=== PATIENT | male | born 1940 | race Caucasian/White ===

== ENCOUNTER 2019-11-10 08:36 | Inpatient (IN) | payer OTHER ==
[~2019-11-10] VITALS: Ht 182.9 cm; Wt 81.6 kg
--- NOTE | 2019-11-10 08:36 | NUR ---
Patient BIBA ALS, transferred to bed 9. RN evaluating patient at bedside.
--- NOTE | 2019-11-10 08:39 | NUR ---
Dr. Mcdaniels is evaluating the patient at bedside.
--- NOTE | 2019-11-10 08:40 | NUR ---
PT BIBA TO ED FRO EVALUATION OF SOB. PER EMS; SOB STARTED THIS MORNIG, BREATHING TREATMENT GIVEN, O2 STA AT HIGH 80'S ON SCENE. PALCED PT ON O2 4L/M VIA NC, O2 SAT 97%. PT AAO X 1 TRO SELF, GCE 14, ABLE TO ANSWER QUESTION BY MUMBLING WORDS. PUPILS PERRRLA 3/3 MM. PT BED BOUND. RESPIRATIONS EVEN AND UNLABORED, BL LUNG RHONCHI. TACHYPNIC RR20'S, O2 SAT ROOM AIR 87-89%, PLACED ON O2 SAT 4 L/M VIA NC. O2 SAT WNL. C/O PRODUCTIVE COUGH. SKIN WARM/PINK/DRY, PULSES STRONG. GENERALIZED BRUISES NOTED. SKIN FRAGILE. ABDOMEN SOFT, NON DISTENDED, ACTIVE BOWEL SOUND X4. SQL DEVELOPER DBA ST HR 100'S, BP WNL. AT BEDSIDE EVALUATING PT. WILL CONTINUE TO MONITOR
[2019-11-10 08:42] VITALS: BP 104/50
--- NOTE | 2019-11-10 08:52 | NUR ---
technical publications writer at bedside.
[2019-11-10 09:16] LABS: BASOPHILS % (AUTO) 0.1 % (0.0-2.0); HEMOGLOBIN 10.1 g/dL (12.0-18.0); LYMPHOCYTES % (AUTO) 5.7 % (20.5-51.1); MEAN CORPUSCULAR HEMOGLOBIN 25 pg (27-31); MEAN CORPUSCULAR HGB CONC 31 g/dL (33-37); MEAN CORPUSCULAR VOLUME 80.7 fL (80-94); MONOCYTES # (AUTO) 0.7 K/uL (0.8-1.0); MONOCYTES % (AUTO) 4.1 % (1.7-9.3); NEUTROPHILS % (AUTO) 90.1 % (42.2-75.2); PLATELET COUNT (AUTO) 378 K/uL (140-450); RED BLOOD CELL COUNT(AUTO) 4.09 MIL/uL (4.20-6.10); RED CELL DISTRIBUTION WIDTH 19.4 % (11.6-13.7)
[2019-11-10 09:31] LABS: WHITE BLOOD COUNT (AUTO) 16.6 K/uL (4.8-10.8)
[2019-11-10 09:42] LABS: PROTHROMBIN TIME 12.4 secs (10.8-13.4)
[2019-11-10 09:46] LABS: ALBUMIN 1.9 g/dL (3.4-5.0); ANION GAP 9.5 (8-16); ASPARTATE AMINOTRANSFERASE 16 U/L (15-37); CARBON DIOXIDE 33.9 mmol/L (21-32); CHLORIDE 114 mmol/L (98-107); GLUCOSE 155 mg/dL (74-106); SODIUM SERUM 155 mmol/L (136-145); TOTAL BILIRUBIN 0.6 mg/dL (0.0-1.0); UREA NITROGEN, BLOOD 18 mg/dL (7-18)
[2019-11-10 09:48] LABS: POTASSIUM 2.4 mmol/L (3.5-5.1)
[2019-11-10] MEDS ORDERED: BISA-213 RC (09:52)
[2019-11-10] MEDS ORDERED: TAMS0.4C96 PO (09:52)
[2019-11-10] MEDS ORDERED: FURO-572 PO (09:52)
[2019-11-10] MEDS ORDERED: MAGN400S60 PO (09:52)
[2019-11-10] MEDS ORDERED: ATOR40TA PO (09:52)
[2019-11-10] MEDS ORDERED: FINA5TAB1 PO (09:52)
[2019-11-10] MEDS ORDERED: MULT-1640 PO (09:52)
[2019-11-10] MEDS ORDERED: ACET-2619 PO (09:52)
[2019-11-10] MEDS ORDERED: APIX5TAB PO (09:52)
[2019-11-10] MEDS ORDERED: ASCO500T45 PO (09:52)
[2019-11-10] MEDS ORDERED: ACET-1194 PO (09:52)
[2019-11-10] MEDS ORDERED: METO25TE2 PO (09:52)
[2019-11-10] MEDS ORDERED: BALS30OI TP (09:52)
[2019-11-10] MEDS ORDERED: NA P133E RC (09:53)
[2019-11-10] MEDS ORDERED: FUROSEMIDE 40 MG/4 ML VIAL IVP ONE (10:00)
[2019-11-10] MEDS ORDERED: POTASSIUM CHL 40 MEQ/ D5-1/2NS 1,000 ML IV ONE (10:00)
[2019-11-10] MEDS ORDERED: [UNRECOGNIZED DRUG - OTHER] IV ONE (10:12)
[2019-11-10] MEDS ORDERED: POTASSIUM CHLORIDE IV ONE (10:12)
[2019-11-10] MEDS ORDERED: DEXTROSE IV ONE (10:12)
--- NOTE | 2019-11-10 10:32 | NUR ---
TURN AND REPOSITION PT, OPEN WOUND TO COCCYX NOTED. PICTURE TAKEN
[2019-11-10] MEDS ORDERED: NACL 0.9% 1,000 ML IV SCH ×2 (11:44→15:45)
[2019-11-10 11:45] LABS: APPEARANCE,URINE CLOUDY (CLEAR); BILIRUBIN,URINE NEGATIVE (NEGATIVE); BLOOD, URINE TRACE-I (NEGATIVE); COLOR,URINE YELLOW (YELLOW); LEUKOCYTE ESTERASE ,URINE 3+ (NEGATIVE); NITRITE, URINE POSITIVE (NEGATIVE); PH,URINE 5.5 (5.0-9.0); UGLUCOSE NEGATIVE (NEGATIVE)
[2019-11-10] MEDS ORDERED: HYDROcodone/APAP 5/325 MG 1 TAB TAB PO PRN (11:45)
[2019-11-10] MEDS ORDERED: ONDANSETRON 4 MG/2 ML VIAL IM/IVP PRN (11:45)
[2019-11-10] MEDS ORDERED: MORPHINE SULFATE 2 MG/ML SYR IVP PRN (11:45)
[2019-11-10] MEDS ORDERED: DOCUSATE SODIUM 100 MG GELCAP PO PRN (11:45)
[2019-11-10] MEDS ORDERED: ACETAMINOPHEN 325 MG TAB PO PRN (11:45)
[2019-11-10 11:48] LABS: WBC,URINE TOO MANY TO COUNT /HPF (0-5)
[2019-11-10] MEDS ORDERED: NACL 0.45% 1,000 ML IV ONE (12:10)
[2019-11-10 12:30] VITALS: BP 115/56
--- NOTE | 2019-11-10 12:30 | NUR ---
RECEIVED PT FROM ER NURSE, IV LINE INTACT ON THE LEFT HAND G. 20, COLINDRES CATHETER IN PLACE, ON O2 2L NC, SACRAL OPEN WOUND REINFORCED WITH DRESSING AND BILATERAL ARMS SCABS AND MULTIPLE SKIN TEARS NOTED, REINFORCED. NO SIGN OF DISTRESS NOTED. WILL CONTINUE TO MONITOR PT.
--- NOTE | 2019-11-10 12:30 | NUR ---
RECEIVED PT FROM ER. WAS GIVEN REPORT BY DREW STARR. PT IS AAOX1. PT HAS VARIOUS BRUISES ON HIS ARMS, A WOUND ON HIS SACRUM REINFORCED WITH COMPOSITE DRESSING, LEFT HEEL DRESSING IN PLACE. IV IN LEFT HAND IS PATENT, DRESSING IS CLEAN AND INTACT. PT IS ON 2L O2 NC. COLINDRES CATHETER IN PLACE. TELE MONITOR ATTACHED. BED IN LOW POSITION, CALL LIGHT IN REACH. WILL CONTINUE TO MONITOR PT.
[2019-11-10 12:31] LABS: MAGNESIUM 1.7 mg/dL (1.8-2.4); PHOSPHORUS 3.5 mg/dL (2.5-4.9); THYROID STIMULATING HORMONE 1.71 uIU/mL (0.34-3.74)
--- NOTE | 2019-11-10 12:33 | NUR ---
Patient will be admitted to care of . Admited to TELE. Will go to room 122A. Belongings list completed. Report to MARLON RUSSELL.
[2019-11-10] MEDS ORDERED: MAGNESIUM HYDROXIDE 2400 MG/30 ML UDC PO PRN (12:45)
[2019-11-10] MEDS ORDERED: BISACODYL 10 MG SUPP RC PRN (12:45)
[2019-11-10] MEDS ORDERED: SODIUM PHOSPHATE 118 ML ENEM RC PRN (12:45)
--- NOTE | 2019-11-10 13:18 | NUR ---
IVF OF 1/2 NS AT 7O0ML/HR WAS STARTED TO PT NOW.
--- NOTE | 2019-11-10 14:00 | NUR ---
ECHO IS BEING DONE TO PT NOW.
[2019-11-10] MEDS ORDERED: MAG SULF 2000 MG/WATER PREMIX 50 ML IV SCH ×2 (14:30→19:00)
--- NOTE | 2019-11-10 14:30 | NUR ---
ECHO WAS FINISHED NOW.
--- NOTE | 2019-11-10 14:50 | NUR ---
SWALLOW EVALUATION WAS DONE TO PT, RECOMMENDATION IS TO PLACE PT ON NPO DUE TO RISK OF ASPIRATION, DR. GOODRICH WAS INFORMED OF THE OUTCOME OF THE SWALLOW EVALUATION.
[2019-11-10] MEDS ORDERED: POTASSIUM CHLORIDE 40 MEQ, LIDOCAINE MPF 1% 25 MG in NACL 0.9% 250 ML IV SCH (15:00)
--- NOTE | 2019-11-10 15:32 | NUR ---
MAGNESIUM IV WAS STARTED TO PT NOW FOR THE MG LEVEL OF 1.7. WILL MONITOR PT.
--- NOTE | 2019-11-10 15:38 | NUR ---
*S.T. BEDSIDE SWALLOW EVAL COMPLETED* See report for details. Pt presents w/ severe oropharyngeal dysphagia c/b consistent delayed pharyngeal swallow initiation and coughing after swallows across all textures. Pt is at high risk for aspiration. Recommend: 1) Strict NPO; alternate non-oral mode of nutrition, hydration and meds. DC P.O. diet. 2) Reassess in 3 days 11/13/2019. D/w pt results/recommendations. Endorsed to DREW Baca. Time [id number]
[2019-11-10] MEDS ORDERED: NACL 0.45% 1,000 ML IV SCH (15:50)
[2019-11-10] MEDS ORDERED: Z-GUARD PASTE TP PRN (17:05)
[2019-11-10] MEDS ORDERED: HYDRAGUARD CREAM TP PRN (17:05)
[2019-11-10] MEDS ORDERED: DEXTROSE 50% 50 ML SYR IVP PRN (17:10)
--- NOTE | 2019-11-10 17:58 | NUR ---
POTASSIUM RIDER WAS STARTED TO PT NOW FOR THE K LEVEL OF 2.4, WILL MONITOR PT
[2019-11-10] MEDS: DEXT 5% / NACL 0.45% 1,000 ML IV SCH (18:06)
[2019-11-10] MEDS ORDERED: ASPIRIN 325 MG TAB PO SCH (18:40)
[2019-11-10] MEDS: ALBUTEROL SULFATE/IPRATROPIU 3 ML SOL IH SCH (18:53)
--- NOTE | 2019-11-10 19:23 | NUR ---
RECIEVED PT AAOX1 , W/ HX OF CVA , DEMENTIA . IV SITE INTACT AND PATENT . ON SAFETY / FALL PRECAUTION PROTOCOL - FALL RISK - BED ALARM ON . POC DISCUSSED BUT POOR UNDERSTANDING DUE TO MENTAL STATUS - CALL LIGHT WITHIN REACH. . LOW CEDRICK SCALE - ON PRESSURE ULCERS PRECAUTION PROTOCOL. NPO EXCEPTS MEDS - W/ HX OF CHRONIC DYSPHAGIA - RESULT OF ST EVAL - REMARKABLE - ON SAP . ON FC DRAINING CLEAR YELLOW U.O .ON O2 AT 8LPM/ MASK - ON O2 SAT MONITORING -O2 SAT WNL , ON CARDIAC MONITORING . WILL CONT. TO MONITOR.
--- NOTE | 2019-11-10 19:23 | NUR ---
ENDORSED PT TO ENDBAND CUTTER HAND, ISRAEL FOR CONTINUITY OF CARE.
[2019-11-10 20:00] VITALS: BP 130/62
[2019-11-10 20:10] LABS: ANION GAP 8.5 (8-16); CARBON DIOXIDE 34.9 mmol/L (21-32); CHLORIDE 113 mmol/L (98-107); CREATININE 1.1 mg/dL (0.7-1.3); GLUCOSE 225 mg/dL (74-106); SODIUM SERUM 154 mmol/L (136-145); UREA NITROGEN, BLOOD 20 mg/dL (7-18)
[2019-11-10 20:13] LABS: POTASSIUM 2.4 mmol/L (3.5-5.1)
[2019-11-10] MEDS: BLOOD GLUCOSE MONITORING 1 DEV DEV FS SCH (20:59)
[2019-11-10] MEDS ORDERED: APIXABAN 2.5 MG TAB PO SCH (21:00)
[2019-11-10] MEDS ORDERED: LOVENOX 1MG/KG Q12H SUBQ SCH (21:00)
[2019-11-10] MEDS: ATORVASTATIN 20 MG TAB PO SCH (21:00)
[2019-11-10] MEDS: METOPROLOL 25 MG TAB PO SCH (21:00)
[2019-11-10] MEDS: ENOXAPARIN 80 MG/0.8 ML SYR SUBQ SCH (21:01)
[2019-11-10] MEDS: INSULIN LISPRO SLIDING SCALE 100 UNITS/ML VIAL SUBQ PRN (21:41)
--- NOTE | 2019-11-10 22:23 | NUR ---
INFORMED DR ANDERS THE DUE ORAL MEDS NOT TOLERATED BY PT.
[2019-11-11] VITALS: BP 121/62
--- NOTE | 2019-11-11 | NUR ---
MADE ROUNDS . NO SIGNS OF ACUTE DISTRESS NOTED AT THIS TIME - O2 SAT - WNL . AWAKEABLE - WILL CONT. TO MONITOR.
--- NOTE | 2019-11-11 02:00 | NUR ---
MADE ROUNDS . SLEEPING BUT AWAKEABLE BY NAME . O2 SAT WNL . WILL CONT. TO MONITOR.
[2019-11-11] MEDS: DEXT 5% / NACL 0.45% 1,000 ML IV SCH ×2 (03:28→10:16)
[2019-11-11 04:00] VITALS: BP 111/60
--- NOTE | 2019-11-11 04:00 | NUR ---
MADE ROUNDS . SLEEPING AWAKEABLE BY NAME , O2 SAT -WNL , WILL CONT. TO MONITOR. GOOD U.O /FC
--- NOTE | 2019-11-11 06:00 | NUR ---
MADE ROUNDS . AWAKE , MUMBLING . OFF LOAD PRESSURE AREAS ORDERED - OPTI FOAM STILL INTACT - NOT CHANGED. NO NO BM.WILL CONT. TO MONITOR.
[2019-11-11 06:07] LABS: T4 (THYROXINE) 7.8 ug/dL (4.5-12.0)
[2019-11-11] MEDS: BLOOD GLUCOSE MONITORING 1 DEV DEV FS SCH ×4 (06:07→20:06)
[2019-11-11] MEDS: ALBUTEROL SULFATE/IPRATROPIU 3 ML SOL IH SCH ×3 (07:26→19:29)
--- NOTE | 2019-11-11 07:28 | NUR ---
ENDORSED TO AM SHIFT FOR CONT. OF CARE W/STABLE CONDITION.
--- NOTE | 2019-11-11 07:33 | NUR ---
RECEIVED PT FROM AUDITING CLERK NURSE, ISRAEL, PT IS AWAKE AND LYING ON THE BED WITH SIDE RAILS UP AND CALL LIGHT WITHIN REACH, PT HAS A VENTURI MASK ON AT 30%, IV LINE ON THE LEFT HAND G. 20 WITH D2 1/2 NS AT 90ML/ HR, PT HAS A SACRAL WOUND IN PLACE REINFORCED WITH DRESSING, PT IS BEING MONITORED FOR THE O2 SATURATION AND SATURATION IS AT 95%, NO SIGN OF DISTRESS NOTED AND WILL CONTINUE TO MONITOR PT.
[2019-11-11 08:00] VITALS: BP 117/64
--- NOTE | 2019-11-11 08:47 | NUR ---
PATIENT HAS BEEN SCREENED AND CATEGORIZED HIGH NUTRITION RISK. PATIENT WILL BE SEEN WITHIN 1-2 DAYS OF ADMISSION. 11/11/2019-11/12/[address]
[2019-11-11] MEDS: FINASTERIDE 5 MG TAB PO SCH (08:50)
[2019-11-11] MEDS: METOPROLOL 25 MG TAB PO SCH ×2 (08:56→20:11)
[2019-11-11] MEDS: TAMSULOSIN 0.4 MG CAP PO SCH (08:58)
[2019-11-11] MEDS: MULTIVITAMIN/MINERALS 1 TAB PO SCH (08:58)
[2019-11-11] MEDS: ASCORBIC ACID 500 MG TAB PO SCH (08:58)
[2019-11-11] MEDS ORDERED: NON-FORMULARY ITEM (Multivitamin-Min/Iron/FA/Vit K (Multi-Day Plus Minerals Tablet) 1 TAB) PO SCH (09:00)
[2019-11-11] MEDS: ENOXAPARIN 80 MG/0.8 ML SYR SUBQ SCH ×2 (09:00→09:02)
[2019-11-11] MEDS ORDERED: BALSAM PERU TP SCH (09:00)
[2019-11-11] MEDS ORDERED: ECOTRIN 81 MG TABEC PO SCH (09:00)
[2019-11-11] MEDS ORDERED: CASTOR OIL TP SCH (09:00)
[2019-11-11] MEDS: ASPIRIN 81 MG TAB.CHEW PO SCH (09:03)
--- NOTE | 2019-11-11 09:05 | NUR ---
ADMINISTERED MORNING MEDICATIONS ORDERED. MEDICATIONS WERE CRUSHED AND GIVEN WITH APPLESAUCE. PT WAS COMPLIANT AND SWALLOWED MEDICATIONS. EDUCATION ABOUT MEDICATIONS WAS GIVEN TO PT. HELD METOPROLOL DUE TO RECHECK OF BP AND RESULT OF 113/41. PT REFUSED LOVENOX, EDUCATION GIVEN TO PT ON IMPORTANCE OF LOVENOX ADMINISTRATION BUT PT STILL REFUSED. INFORMED. WILL CONTINUE TO MONITOR PT.
[2019-11-11] MEDS ORDERED: hePARIN / DEXT 5% PREMIX 250 ML IV SCH ×2 (09:50→12:08)
[2019-11-11] MEDS ORDERED: HEPARIN PER PHARMACY MC PRN (09:50)
--- NOTE | 2019-11-11 09:55 | NUR ---
DC PLANNIN YRS OLD MALE PATIENT WAS ADMITTED FROM [facility] WITH A DX OF SOB , HEART FAILURE. PT HAS A HX OF DEMENTIA, CHF, HTN, DYSPHAGIA, AND CVA. PT IS WHEELCHAIR BOUND IS HIS BASELINE. ADMINISTERED IVF ,ROCEPHIN IV FOR UTI ,BLOOD AND URINE CULTURE PENDING , INITIATE RT PROTOCOL, CARDIOLOGY CONSULT SEEN BY DR SERRANO RECOMMENDED ECHO FOR LVEF/RWMA , CONTINUED HOME MEDS . DC PLAN TO GO BACK TO [facility] WHEN STABLE. Addendum: 11/13/19 at 1137 by Jaylin Baxter CM DC PLANNING: SEEN BY DIGITAL OPERATIONS ANALYST DR HERNANDEZ REVIEWED ECHO NORMAL LVEF,RECOMMENDED TO CONTINUE TREATMENT OF UNDERLYING METABOLIC/ INFECTIOUS PROCESSES. DR KM MANNING MD TO CONTINUE MEROPENEM THERAPY, SUPERVISOR AGRICULTURAL EDUCATION CONSULT WITH DR HARINI GUZMAN FOR HYPERNATREMIA NA 160 . K+2.8 K-RIDER IV ORDERED TO BE GIVEN. CM TO FOLLOW Addendum: 11/15/19 at 1516 by Jaylin Baxter CM DC PLANNING PT HAS A DC ORDER TO GO BACK TO [facility] . PT CAN GO TO ROOM 514 B . ARRANGED TRANSPORT WITH [facility] INTENSIVE PHYSICIAN TIME 1800 PER SARAH (STUCCO APPLICATOR [facility]) Addendum: 11/16/19 at 1446 by Jaylin Baxter CM DC PLANNING: PT HAS ISO BED AT [facility] GOING ROOM 100B ,ARRANGED TRANSPORT WITH [facility]IATR[facility] INTENSIVE PHYSICIAN TIME 5PM NOTIFED LAURITA RUSSELL
[2019-11-11 10:44] LABS: BASOPHILS # (AUTO) 0.1 K/uL (0.00-0.22); BASOPHILS % (AUTO) 0.6 % (0.0-2.0); EOSINOPHILS # (AUTO) 0.1 K/uL (0-0.4); EOSINOPHILS % (AUTO) 0.5 % (0.0-4.0); HEMATOCRIT 30.5 % (36-52); HEMOGLOBIN 9.5 g/dL (12.0-18.0); LYMPHOCYTES # (AUTO) 1.2 K/uL (2.0-11.5); LYMPHOCYTES % (AUTO) 12.3 % (20.5-51.1); MEAN CORPUSCULAR HEMOGLOBIN 25 pg (27-31); MEAN CORPUSCULAR HGB CONC 31 g/dL (33-37); MEAN CORPUSCULAR VOLUME 80.7 fL (80-94); MONOCYTES # (AUTO) 0.7 K/uL (0.8-1.0); NEUTROPHILS # (AUTO) 7.9 K/uL (1.8-7.7); NEUTROPHILS % (AUTO) 79.6 % (42.2-75.2); PLATELET COUNT (AUTO) 331 K/uL (140-450); RED BLOOD CELL COUNT(AUTO) 3.78 MIL/uL (4.20-6.10); RED CELL DISTRIBUTION WIDTH 19.5 % (11.6-13.7); WHITE BLOOD COUNT (AUTO) 9.9 K/uL (4.8-10.8)
[2019-11-11 11:07] LABS: ANION GAP 9.9 (8-16); CARBON DIOXIDE 34.5 mmol/L (21-32); CHLORIDE 114 mmol/L (98-107); CREATININE 0.9 mg/dL (0.7-1.3); GLUCOSE 173 mg/dL (74-106); UREA NITROGEN, BLOOD 20 mg/dL (7-18)
[2019-11-11 11:12] LABS: MAGNESIUM 2.2 mg/dL (1.8-2.4); PHOSPHORUS 2.4 mg/dL (2.5-4.9)
[2019-11-11 11:14] LABS: CHOL/HDL RATIO 2.3 (1-4.5)
[2019-11-11 11:27] LABS: SODIUM SERUM 156 mmol/L (136-145)
[2019-11-11 11:28] LABS: POTASSIUM 2.4 mmol/L (3.5-5.1)
[2019-11-11 12:00] VITALS: BP 127/46
--- NOTE | 2019-11-11 12:04 | NUR ---
BLOOD GLUCOSE CHECKED WITH A RESULT OF 169. NO INSULIN COVERAGE GIVEN DUE TO PT NPO STATUS. DR. BONILLA NOTIFIED AND ACKNOWLEDGED. WILL CONTINUE TO MONITOR.
--- NOTE | 2019-11-11 12:15 | NUR ---
TIME OUT AND PICC LINE INSERTION WAS STARTED TO PT NOW.
--- NOTE | 2019-11-11 12:40 | NUR ---
PICC LINE INSERTION WAS FINISHED NOW AND CXR WAS ORDERED TO CONFIRM PICC LINE PLACEMENT AND PICC LINE NURSE JOSÉ, CONFIRMED THAT PICC LINE IS GOOD AND READY TO USE.
--- NOTE | 2019-11-11 14:18 | NUR ---
11/11/2019 RD INITIAL ASSESSMENT COMPLETED PLEASE REFER TO NUTRITION ASSESSMENT UNDER CARE ACTIVITY FOR ESTIMATED NUTRITIONAL NEEDS. RD RECOMMENDATIONS: 1. CONTINUE NPO MEDICALLY APPROPRIATE. 2. CONSIDER CONSULTING STEM TEACHER FOR REASSESSMENT. 3. IF MEDICALLY APPROPRIATE, CONSIDER LOW NA DIET WITH TEXTURE RECOMMENDATIONS PER STEM TEACHER. 4. IF PT WILL NEED TUBE FEEDING, CONSIDER VITAL AF AT 70 ML/HR TO PROVIDE 1680 ML OF TOTAL VOLUME, 2016 KCAL 126 GM PROTEIN, AND 1362 ML OF FREE WATER (ADEQUATE TO MEET 100% OF ESTIMATED NUTRITION NEEDS). 5. RD WILL F/U 2-3 DAYS; HIGH RISK. CASEY LAUREN, CAROL
[2019-11-11] MEDS ORDERED: POTASSIUM CHLORIDE 40 MEQ, LIDOCAINE 1% 25 MG in NACL 0.9% 250 ML IV SCH ×2 (15:00→19:30)
--- NOTE | 2019-11-11 15:22 | NUR ---
PT WAS GIVEN POTASSIUM RIDER NOW 40MEQ FOR THE K LEVEL OF 2.4, WILL MONITOR PT.
[2019-11-11 16:00] VITALS: BP 111/53
[2019-11-11] MEDS ORDERED: FUROSEMIDE 40 MG/4 ML VIAL IVP SCH (18:00)
[2019-11-11] MEDS: AMPICILLIN/SULBACTAM 3 GM in NACL 0.9% 100 ML IV SCH (18:15)
--- NOTE | 2019-11-11 18:18 | NUR ---
DR. JONES WAS INFORMED THAT PT'S BP IS 106/43, AND SAID TO GIVE LASIX IV PUSH, IVPB MEDIATION WAS GIVEN ALSO, WILL MONITOR PT.
--- NOTE | 2019-11-11 19:15 | NUR ---
ENDORSED PT TO ADJUNCT INSTRUCTOR CHEMISTRY RN. PT IN STABLE CONDITION.
--- NOTE | 2019-11-11 19:16 | NUR ---
RECEIVED BEDSIDE REPORT FROM DAY RN. PT IS AWAKE AND LYING ON THE BED WITH SIDE RAILS UP AND CALL LIGHT WITHIN REACH, PT HAS A VENTURI MASK ON AT 30%,PT IS BEING MONITORED FOR THE O2 SATURATION, SAT 92%.PT WITH PICC LINE ON R UPPER ARM DOUBLE LUMEN CURRENTLY 40 MEQ K/LIDOCAINE INFUSING AT 68M/H. PT HAS A SACRAL WOUND IN PLACE REINFORCED WITH DRESSING, L FOOT DRESSING C/D/I. HAS MX SKIN TEAR ON SELINA ARMS. NON-PITTING EDEMA ON SELINA UPPER/LOWER EXTREMITIES. COLINDRES CATH IS DRAINING CLEAR YELLOW URINE. NO SIGN OF DISTRESS NOTED AND WILL CONTINUE TO MONITOR PT.
[2019-11-11] MEDS: ACETYLCYSTEINE 10% (100 MG/ML) 100 MG/ML VIAL INH SCH (19:29)
[2019-11-11 20:00] VITALS: BP 110/41
[2019-11-11] MEDS: APIXABAN 2.5 MG TAB PO SCH (20:10)
--- NOTE | 2019-11-11 20:10 | NUR ---
VSS. BG 166 NO COVERAGE GIVEN D/T NPO. PT IS CURRENTLY NPO D/T NOT PASSING SWALLOW EVAL. THEREFORE HELD LIPITOR AND LOPRESSOR. ELIQUIS WAS CRUSHED AND GIVEN WITH APPLE SAUCE. PT SAT UP 90 DEGREES SUCTION AT BEDSIDE. PT TOLERATED WELL. NO S/S OF ASPIRATION. WILL CONTINUE TO MONITOR. CALL LIGHT IS WITHIN REACH.
[2019-11-11] MEDS: ATORVASTATIN 20 MG TAB PO SCH (20:11)
--- NOTE | 2019-11-11 20:54 | NUR ---
SECOND BAG OF POTASSIUM NOW INFUSING WELL. ALL SAFETY MEASURES ARE IN PLACE. CALL LIGHT IS WITHIN REACH.
--- NOTE | 2019-11-11 22:46 | NUR ---
PATIENT IS SLEEPING COMFORTABLY IN BED WITH EYES CLOSED. CHEST RISE AND FALL. PT SAT WELL ON VENTURI MASK40% SAT 98%. NO S/S OF RESPIRATORY DISTRESS. WILL CONTINUE TO MONITOR.
[2019-11-12] VITALS: BP 112/70
[2019-11-12] MEDS: ALBUTEROL SULFATE/IPRATROPIU 3 ML SOL IH PRN (00:14)
[2019-11-12] MEDS: ACETYLCYSTEINE 10% (100 MG/ML) 100 MG/ML VIAL INH SCH ×4 (00:14→19:02)
[2019-11-12] MEDS: AMPICILLIN/SULBACTAM 3 GM in NACL 0.9% 100 ML IV SCH ×3 (00:20→13:55)
--- NOTE | 2019-11-12 00:30 | NUR ---
VSS. RT IS AT BEDSIDE GIVING BREATHING TX. PT HAS BEEN SATING 100% ON VENTURI MASK 40% WILL BE SWITCH TO NC 3L AND WILL MONITOR HOW PT TOLERATES. ALL SAFETY MEASURES ARE IN PLACE.
--- NOTE | 2019-11-12 02:24 | NUR ---
PATIENT IS SLEEPING COMFORTABLY IN BED WITH EYES CLOSED. PT ON NC ON 4L O2 SAT WELL 97-100%. RESPIRATIONS ARE EQUAL AND UNLABORED. SAFETY MEASURES ARE IN PLACE. WILL CONTINUE TO MONITOR.
[2019-11-12 04:00] VITALS: BP 102/62
--- NOTE | 2019-11-12 04:15 | NUR ---
VITAL SIGNS ARE WITHIN NORMAL LIMITS. ALL SAFETY MEASURES ARE IN PLACE. WILL CONTINUE TO MONITOR.
[2019-11-12] MEDS: BLOOD GLUCOSE MONITORING 1 DEV DEV FS SCH ×4 (05:29→20:00)
[2019-11-12] MEDS: ALBUTEROL SULFATE/IPRATROPIU 3 ML SOL IH SCH ×3 (06:28→19:02)
--- NOTE | 2019-11-12 06:29 | NUR ---
BG 186 NO COVERAGE GIVEN D/T NPO. PT IS SLEEPING COMFORTABLY IN BED. CHEST RISE AND FALL. NO S/S OF DISTRESS. PT SAT 98-100% ON NC 4L O2. PT IS STABLE. WILL ENDORSE TO DAY RN.
[2019-11-12 06:34] LABS: HEMATOCRIT 26.7 % (36-52); HEMOGLOBIN 8.4 g/dL (12.0-18.0); MEAN CORPUSCULAR HEMOGLOBIN 25 pg (27-31); MEAN CORPUSCULAR HGB CONC 31 g/dL (33-37); MEAN CORPUSCULAR VOLUME 80.8 fL (80-94); PLATELET COUNT (AUTO) 304 K/uL (140-450); RED BLOOD CELL COUNT(AUTO) 3.31 MIL/uL (4.20-6.10); RED CELL DISTRIBUTION WIDTH 19.6 % (11.6-13.7); WHITE BLOOD COUNT (AUTO) 7.1 K/uL (4.8-10.8)
[2019-11-12 07:09] LABS: ANION GAP 8.9 (8-16); CARBON DIOXIDE 33.9 mmol/L (21-32); CHLORIDE 118 mmol/L (98-107); CREATININE 0.9 mg/dL (0.7-1.3); GLUCOSE 200 mg/dL (74-106); UREA NITROGEN, BLOOD 19 mg/dL (7-18)
[2019-11-12 07:14] LABS: PHOSPHORUS 2.6 mg/dL (2.5-4.9)
[2019-11-12 07:30] LABS: BASOPHILS % (MANUAL) 0 % (0-2); EOSINOPHILS % (MANUAL) 0 % (0-4); LYMPHOCYTES % (MANUAL) 11 % (20-46); MONOCYTES % (MANUAL) 5 % (5-12)
--- NOTE | 2019-11-12 07:30 | NUR ---
RECEIVED PT FROM FREIGHT CAR CLEANER DELTA SYSTEM NURSEROYER PT IS AWAKE AND LYING ON THE BED WITH SIDE RAILS UP ,AND CALL LIGHT WITHIN REACH, PT HAS A RT UA PICC LINE, DOUBLE LUMEN WITH D5 1/2 NS INFUSING AT 90ML/HR, SAFETY AND FALL PRECAUTION INITIATED, SACRAL WOUND REINFORCED WITH DRESSING, SEQUENTIAL COMPRESSION DEVISE IN PLACE AND PT IS ON NO2 4L NC, NO SIGN OF DISTRESS N0TED AND WILL MONITOR PT.
[2019-11-12 07:32] LABS: POTASSIUM 2.8 mmol/L (3.5-5.1); SODIUM SERUM 158 mmol/L (136-145)
[2019-11-12 08:00] VITALS: BP 106/53
[2019-11-12] MEDS ORDERED: POTASSIUM CHLORIDE 10 MEQ TABER PO SCH (08:18)
[2019-11-12] MEDS: METOPROLOL 25 MG TAB PO SCH ×2 (09:00→20:01)
[2019-11-12] MEDS: APIXABAN 2.5 MG TAB PO SCH ×2 (09:26→20:25)
[2019-11-12] MEDS: ASPIRIN 81 MG TAB.CHEW PO SCH (09:26)
--- NOTE | 2019-11-12 09:26 | NUR ---
PT IS AWAKE AND WAS POSITIONED UPRIGHT, AM MEDICATIONS WERE GIVEN, CRUSHED WITH APPLE SAUCE AND WITH THICKENED WATER, TOLERATED AND NO SIGN OF DISTRESS NOTED AND WILL CONTINUE TO MONITOR PT.
[2019-11-12] MEDS: MULTIVITAMIN/MINERALS 1 TAB PO SCH (09:27)
[2019-11-12] MEDS: ASCORBIC ACID 500 MG TAB PO SCH (09:28)
[2019-11-12] MEDS: TAMSULOSIN 0.4 MG CAP PO SCH (09:28)
[2019-11-12] MEDS: FINASTERIDE 5 MG TAB PO SCH (09:28)
[2019-11-12] MEDS: HYDRAGUARD CREAM TP SCH (09:29)
[2019-11-12] MEDS ORDERED: POTASSIUM CHLORIDE 40 MEQ, LIDOCAINE 1% 25 MG in NACL 0.9% 250 ML IV SCH (09:30)
[2019-11-12 12:00] VITALS: BP 111/56
--- NOTE | 2019-11-12 12:47 | NUR ---
PT'S BLOOD GLUCOSE WAS CHECKED AND IS 182, AND DR. BONILLA WAS INFORMED AND SAID NOT TO GIVE INSULIN COVERAGE BECAUSE PT IS STILL ON NPO.
--- NOTE | 2019-11-12 13:57 | NUR ---
PT WAS GIVEN UNASYN VIA IVPB, WILL MONITOR PT.
[2019-11-12] MEDS: DEXT 5% / NACL 0.45% 1,000 ML IV SCH (14:35)
--- NOTE | 2019-11-12 15:57 | NUR ---
LAB CALLED AND REPORTED THE PT'S CRITICAL URINE CULTURE REPORT OF POSITIVE MDRO, E. COLI. AND WAS REPORTED TO DR. IRENE MD ACKNOWLEDGED.
[2019-11-12 16:00] VITALS: BP 107/54
--- NOTE | 2019-11-12 17:07 | NUR ---
BLOOD GLUCOSE CHECK WAS DONE AND IS 173 AND INSULIN WAS NOT GIVEN DUE TO PT ON NPO., DR. BONILLA WAS INFORMED.
[2019-11-12 18:01] LABS: CARBON DIOXIDE 35.8 mmol/L (21-32); CHLORIDE 120 mmol/L (98-107); CREATININE 0.9 mg/dL (0.7-1.3); GLUCOSE 203 mg/dL (74-106); UREA NITROGEN, BLOOD 17 mg/dL (7-18)
[2019-11-12 18:05] LABS: POTASSIUM 2.8 mmol/L (3.5-5.1); SODIUM SERUM 160 mmol/L (136-145)
--- NOTE | 2019-11-12 19:10 | NUR ---
ENDORSED PT TO CONTINUOUS LINTER DRIER OPERATOR NURSEROYER FOR CONTINUITY OF CARE. PT IS STABLE AT THIS TIME.
--- NOTE | 2019-11-12 19:11 | NUR ---
RECEIVED BEDSIDE REPORT FROM DAY RN. PT IS AWAKE AND LYING ON THE BED WITH SIDE RAILS UP AND CALL LIGHT WITHIN REACH, RT IS AT BEDSIDE GIVING BREATHING TREATMENT. PT IS BEING MONITORED FOR THE O2 SATURATION, SAT 99% ON NC 4L O2 .PT WITH PICC LINE ON R UPPER ARM DOUBLE LUMEN CURRENTLY D51/2NS INFUSING AT 30M/H. PT HAS A SACRAL WOUND IN DRESSING C/D/I., L FOOT DRESSING C/D/I. HAS MX SKIN TEAR ON SELINA ARMS. PITTING EDEMA NOTED ON SELINA UPPER/LOWER EXTREMITIES. COLINDRES CATH IS DRAINING CLEAR YELLOW URINE. PT CURRENTLY NPO EXCEPT MEDS. D/T NOT PASSING SWALLOW EVAL. NO SIGN OF DISTRESS NOTED AND WILL CONTINUE TO MONITOR PT.
[2019-11-12 20:00] VITALS: BP 111/56
[2019-11-12] MEDS: ATORVASTATIN 20 MG TAB PO SCH (20:01)
[2019-11-12] MEDS: MEROPENEM 1,000 MG in NACL 0.9% 100 ML IV SCH (20:20)
--- NOTE | 2019-11-12 20:20 | NUR ---
VITAL SIGNS ARE WITHIN NORMAL LIMITS. JOSH MEDICATIONS GIVEN. CRUSHED ELIQUIS AND ADMINISTERED WITH APPLE SAUCE. SAT PT UP TO 90 DEGREES SUCTION AT BEDSIDE. PT TOLERATED WELL. IV ANTIBIOTICS INFUSING PER ORDERS. WILL CONTINUE TO MONITOR
--- NOTE | 2019-11-12 22:30 | NUR ---
PATIENT WAS CLEANED AND REPOSITION FOR COMFORT. ALL SAFETY MEASURES ARE IN PLACE. CALL LIGHT IS WITHIN REACH. WILL CONTINUE TO MONITOR.
--- NOTE | 2019-11-12 23:41 | NUR ---
PT IS SLEEPING COMFORTABLY IN BED ON NC 3L O2 SATURATING WELL AT 98%. CHEST RISE AND FALL. NO S/S OF DISTRESS. CALL LIGHT IS WITHIN REACH. WILL CONTINUE TO MONITOR.
[2019-11-13] VITALS: BP 103/48
[2019-11-13] MEDS: ALBUTEROL SULFATE/IPRATROPIU 3 ML SOL IH PRN (01:17)
[2019-11-13] MEDS: ACETYLCYSTEINE 10% (100 MG/ML) 100 MG/ML VIAL INH SCH ×4 (01:17→19:43)
--- NOTE | 2019-11-13 01:18 | NUR ---
RT AT BEDSIDE. NO S/S OF DISTRESS. CALL LIGHT IS WITHIN REACH.
[2019-11-13 04:00] VITALS: BP 110/50
--- NOTE | 2019-11-13 04:00 | NUR ---
VITAL SIGNS ARE WITHIN NORMAL LIMITS. DENIES PAIN. SAFETY MEASURES ARE IN PLACE. WILL CONTINUE TO MONITOR.
[2019-11-13] MEDS: MEROPENEM 1,000 MG in NACL 0.9% 100 ML IV SCH ×3 (04:42→22:11)
--- NOTE | 2019-11-13 06:34 | NUR ---
BLOOD SUGAR IS 160 NO COVERAGE GIVEN D/T NPO. SAFETY MEASURES ARE IN PLACE. WILL CONTINUE TO MONITOR.
[2019-11-13] MEDS: ALBUTEROL SULFATE/IPRATROPIU 3 ML SOL IH SCH ×3 (06:37→19:43)
--- NOTE | 2019-11-13 07:15 | NUR ---
GAVE BEDSIDE REPORT TO DAY RN. PT ENDORSED IN STABLE CONDITION.
--- NOTE | 2019-11-13 07:16 | NUR ---
RECEIVED REPORT FROM FILER REPAIRER NURSE AT BEDSIDE FOR CONTINUITY OF CARE. PT IS AWAKE AND LYING ON THE BED WITH SIDE RAILS UP AND CALL LIGHT WITHIN REACH, PT ON WOUND BED. PT IS AFIB ON TELE MONITOR. RESPIRATIONS EVEN AND UNLABORED ON 2L O2 VIA NC. PT HAS PICC LINE ON R UPPER ARM DOUBLE LUMEN CURRENTLY D5 1/2 NS INFUSING AT 30 ML/HR. PT HAS A SACRAL WOUND IN DRESSING C/D/I., L FOOT DRESSING C/D/I. HAS SKIN TEAR ON BLE. PITTING EDEMA NOTED ON BLE AND BUE. COLINDRES CATH IS DRAINING CLEAR YELLOW URINE TO GRAVITY. PT CURRENTLY NPO EXCEPT MEDS D/T NOT PASSING SWALLOW EVAL. SAFETY, ASPIRATION, AND ISOLATION PRECAUTIONS IN PLACE, BED IN LOWEST POSITION WITH ALARM AND BRAKES ON, NO SIGN OF DISTRESS NOTED, CALL LIGHT WITHIN REACH, WILL CONTINUE TO MONITOR PATIENT.
[2019-11-13] MEDS: BLOOD GLUCOSE MONITORING 1 DEV DEV FS SCH ×4 (07:30→21:00)
[2019-11-13 07:47] VITALS: BP 98/51
[2019-11-13 08:27] LABS: BASOPHILS % (AUTO) 0.4 % (0.0-2.0); EOSINOPHILS # (AUTO) 0.1 K/uL (0-0.4); EOSINOPHILS % (AUTO) 2.2 % (0.0-4.0); HEMATOCRIT 25.2 % (36-52); HEMOGLOBIN 7.9 g/dL (12.0-18.0); LYMPHOCYTES # (AUTO) 0.9 K/uL (2.0-11.5); LYMPHOCYTES % (AUTO) 14.3 % (20.5-51.1); MEAN CORPUSCULAR HEMOGLOBIN 25 pg (27-31); MEAN CORPUSCULAR HGB CONC 31 g/dL (33-37); MEAN CORPUSCULAR VOLUME 80.2 fL (80-94); MONOCYTES # (AUTO) 0.4 K/uL (0.8-1.0); MONOCYTES % (AUTO) 6.4 % (1.7-9.3); NEUTROPHILS # (AUTO) 4.9 K/uL (1.8-7.7); NEUTROPHILS % (AUTO) 76.7 % (42.2-75.2); PLATELET COUNT (AUTO) 312 K/uL (140-450); RED BLOOD CELL COUNT(AUTO) 3.14 MIL/uL (4.20-6.10); RED CELL DISTRIBUTION WIDTH 19.4 % (11.6-13.7); WHITE BLOOD COUNT (AUTO) 6.3 K/uL (4.8-10.8)
[2019-11-13] MEDS: METOPROLOL 25 MG TAB PO SCH ×2 (08:57→21:00)
[2019-11-13] MEDS: ASPIRIN 81 MG TAB.CHEW PO SCH (09:04)
[2019-11-13] MEDS: FINASTERIDE 5 MG TAB PO SCH (09:04)
[2019-11-13] MEDS: TAMSULOSIN 0.4 MG CAP PO SCH (09:04)
[2019-11-13] MEDS: ASCORBIC ACID 500 MG TAB PO SCH (09:04)
[2019-11-13] MEDS: MULTIVITAMIN/MINERALS 1 TAB PO SCH (09:04)
[2019-11-13] MEDS: APIXABAN 2.5 MG TAB PO SCH ×2 (09:05→22:13)
--- NOTE | 2019-11-13 09:05 | NUR ---
ORDERED MEDICATIONS GIVEN. METOPROLOL WITHHELD D/T PATIENT'S BP OF 98/51 HR 110. PATIENT TOLERATED MEDICATIONS WELL. ORAL CARE GIVEN. PATIENT TOLERATED IT. PATIENT DENIES PAIN. NO COMPLAINTS AT THIS TIME. SAFETY AND ISOLATION PRECAUTIONS IN PLACE, BED IN LOWEST POSITION WITH BRAKES AND ALARM ON, CALL LIGHT WITHIN REACH, WILL CONTINUE TO MONITOR PATIENT.
[2019-11-13] MEDS: HYDRAGUARD CREAM TP SCH (09:41)
--- NOTE | 2019-11-13 10:15 | NUR ---
DR HERNANDEZ IN TO SEE THE PATIENT. WILL WAIT FOR HIS RECOMMENDATIONS.
--- NOTE | 2019-11-13 11:45 | NUR ---
WOUND CARE NURSES IN TO SEE THE PATIENT. WILL WAIT FOR THEIR EVALUATION.
[2019-11-13 12:00] VITALS: BP 99/57
--- NOTE | 2019-11-13 12:00 | NUR ---
WOUND CARE EVALUATION NOTES: REASON FOR EVALUATION: SACRAL WOUND WOUND ASSESSMENT COMPLETED ON THIS 79 Y/O MALE ADMITTED TO [facility] FOR SOB/HEART FAILURE. PATIENT IS FROM [facility]. PAST MEDICAL HISTORY INCLUDES DEMENTIA, DEPRESSION, ATRIAL FIBRILLATION, CHF, HYPERTENSION, DYSPHAGIA, AND CVA. ALL ABOVE INFORMATION WAS OBTAINED FROM THE ADMISSION H&P. LABS ARE WBC 6.3, H/H 7.9/25.2, GLUCOSE 203, ALBUMIN 1.9. PATIENT IS AAOX1, VERBAL, CONFUSED AND FORGETFUL. SKIN IS WARM TO TOUCH. HAS GENERALIZED BILATERAL UPPER EXTREMITY AND LOWER EXTREMITIES EDEMA. ORAL MUCOSAL MEMBRANES DRY. RIGHT UPPER PICC LINE IN PLACE, DRESSING DRY AND INTACT. REQUIRES ASSISTANCE WITH TURNING. PLAN OF CARE AND PRESSURE PREVENTATIVE MEASURES DISCUSSED WITH PATIENT AND PRIMARY RN. PATIENT UNABLE TO COMPREHEND, CONFUSED AND FORGETFUL. PATIENT ADMITTED WITH PRESSURE ULCER TO [facility] AND MULTIPLE SKIN TEARS COMORBIDITIES RELATED TO FURTHER SKIN BREAKDOWN SUCH IMPAIRED OR DECREASED MOBILITY AND DECREASED FUNCTIONAL ABILITY, LOW ALBUMIN LEVEL AND S/S OF DEHYDRATION. INTEGUMENTARY: - LEFT FOREARM HAS MULTIPLE SKIN TEARS WITH SKIN FLAP INTACT. LARGEST SKIN TEAR MEASURES 3 X 2.5 CM WITH SUPERFICIAL DEPTH. WOUND BED RED, MICHAEL-WOUND SKIN DRY WITH ECCHYMOSIS, NO ODOR, SMALL SANGUINOUS DRAINAGE. - RIGHT UPPER EXTREMITY MULTIPLE SKIN TEARS WITH SKIN FLAP INTACT. LARGEST SKIN TEAR TO AC MEASURES 0.5 X 8.0 CM WITH SUPERFICIAL DEPTH. WOUND BED RED, MICHAEL-WOUND SKIN DRY ECCHYMOSIS, NO ODOR, SMALL SANGUINOUS DRAINAGE. - [facility] PRESSURE ULCER STAGE II, MEASUREMENTS 1.5 X 1.0 X 0.1 CM. WOUND BED NON-BLANCHABLE REDNESS. MICHAEL-WOUND SKIN DENUDED, INDICATED FURTHER DAMAGE. MICHAEL-WOUND MEASURES 3 X 4 CM DENUDED SKIN. WOUND HAS NO ODOR, MINIMAL SEROUS DRAINAGE. - RIGHT HEEL SCAB, MEASUREMENT 1 X 1 CM, DEPTH UTD. MICHAEL-WOUND SKIN PINK, INTACT. NO ODOR, NO DRAINAGE. - LEFT HEEL BLANCHABLE REDNESS, MEASUREMENT 1 X 1 X 0 CM. MICHAEL-WOUND SKIN PINK, INTACT. NO ODOR, NO DRAINAGE. RECOMMENDATIONS: - NO TAPE ON SKIN. - LEFT FOREARM MULTIPLE SKIN TEARS - CLEANSE WITH NS, PAT DRY, APPLY XEROFORM DRESSING, COVER WITH DRY DRESSING, AND WRAP WITH KERLIX THREE TIMES PER WEEK ON WEDNESDAY, WEDNESDAY, AND WEDNESDAY'S AND PRN IF SOILED. - RIGHT FOREARM MULTIPLE SKIN TEARS - CLEANSE WITH NS, PAT DRY, APPLY XEROFORM DRESSING, COVER WITH DRY DRESSING, AND WRAP WITH KERLIX THREE TIMES PER WEEK ON WEDNESDAY, WEDNESDAY, AND WEDNESDAY'S AND PRN IF SOILED. - SACRALCOCCYX PRESSURE ULCER STAGE II - CLEANSE WITH NS, PAT DRY, APPLY Z-GUARD TO MICHAEL-WOUND SKIN, AND COVER WITH OPTIFOAM DRESSING DAILY AND PRN IF SOILED. - OFFLOAD BILATERAL HEELS BY PLACING BILATERAL HEEL PROTECTORS. - TURN AND REPOSITION PATIENT Q2H TO LEFT AND RIGHT SIDE TO OFFLOAD SACRALCOCCYX. - ASSESS AND MONITOR SKIN CONDITION DURING POSITION CHANGE. PLEASE PAY ATTENTION TO SACRALCOCCYX AND HEELS. - KEEP SKIN DRY AND CLEAN AT ALL TIMES. - RD CONSULT RECOMMENDATIONS DISCUSSED WITH PRIMARY RN AND DR. GOODRICH. WILL FOLLOW-UP PAITENT Q7-10 DAYS AND PRN. PLEASE CONTACT WOUND CARE NURSE FOR ANY CONCERNS AND CHANGES IN WOUND CONDITION. The history is obtained from the patient, who is alert, oriented to person, place and time and appears to be an accurate historian, comprehends Kinyarwanda adequately though is only able to nod and shake head to yes and no questions.. Chief Complaint Shortness of breath, cough and congestion x 2 days History Of Present Illness Patient is a 79 year old female with past medical history of dementia, depression, atrial fibrillation, CHF, hypertension, dysphagia, CVA who comes to the [facility] emergency room by EMS from [facility] with a 2 day complaint of shortness of breath, cough and congestion, and generalized body aches, fatigue, malaise but he denies chest pain, abdominal pain at this time. Also endorses constipation. Denies pain on urination. As per EMS report, patient was found lying in bed at the facility, alert and oriented x 2 with a GCS of 12. Initial work-up in the ER showed that the patient had a white count of 16.6, a urinary tract infection and a chest x-ray revealed some vascular congestion. The patient was also tachycardic and tachypneic on arrival. He was placed on cardiac rehabilitation program director, EKG showed atrial fibrillation and an initial troponin was elevated at .0798. His BNP was 579, so he was given a dose of IV Lasix. Additionally, labs revealed a hypernatremia of 155 and hypokalemia 2.4. He was given one dose of IV potassium 40 meQ. Patient lives at [facility], is wheelchair bound and does not use oxygen at baseline. Past Medical History dementia depression atrial fibrillation CHF hypertension dysphagia CVA
[2019-11-13] MEDS ORDERED: ALBUTEROL SULFATE/IPRATROPIU 3 ML SOL IH PRN (13:15)
[2019-11-13] MEDS: POTASSIUM CHLORIDE 40 MEQ in DEXTROSE 5% 1,000 ML IV SCH (13:23)
--- NOTE | 2019-11-13 13:30 | NUR ---
PATIENT'S IVF CHANGED TO D5 POTASSIUM 40MEQ, PATIENT TOLERATED IT WELL. PATIENT CURRENTLY GETTING BREATHING TREATMENT. PATIENT HAS NO COMPLAINTS AT THIS TIME. SAFETY AND ISOLATION PRECAUTIONS IN PLACE, CALL LIGHT WITHIN REACH, WILL CONTINUE TO MONITOR PATIENT.
--- NOTE | 2019-11-13 13:44 | NUR ---
INSURANCE ACCOUNT MANAGER CALLED, PATIENT'S HR 130 BMP. CHECKED IN ON PATIENT. NO S/S OF DISTRESS NOTED. INFORMED DR. BONILLA OF PATIENT'S CONDITION, CURRENT BP, AND WITHHOLDING OF METOPROLOL IN THIS AM. NO NEW ORDERS AT THIS TIME. SPEECH THERAPIST IN TO SEE PATIENT, WILL WAIT FOR HER EVALUATION AND RECOMMENDATION.
--- NOTE | 2019-11-13 14:12 | NUR ---
*Speech Pathology Treatment note* S: Pt seen at bedside, cleared by DREW Henderson. No family/caregiver present. Pt denied pain, was awake and alert. O: P.O. trials of nectar thick liquids via spoon and straw, thin liquids via straw, puree and 1 square inch saltine cracker given. A: Pt presents with moderate oropharyngeal dysphagia c/b prolonged mastication of solids, delay in pharyngeal swallow initiation and observed instance of coughing after swallow of thin liquid from straw. Pt requires assistance w/ feeding. Unable to self-feed. Pt is deemed at moderate risk for aspiration. P: Recommend: 1) Advance to mechanical soft ground diet, NECTAR THICK liquids only. Straws okay. 2) P.O. meds okay whole, one at a time. 3) 1:1 feeder w/ aspiration precautions. 4) Speech pathology to follow for swallow therapy 1x/1 week. D/w pt results/recommendations; endorsed to DREW Henderson. Time 2433-8652 Addendum: 11/13/19 at 1420 by Violette ZAMORA Addendum: [facility] kitchen to provide NECTAR THICK bedside water for pt.
--- NOTE | 2019-11-13 14:36 | NUR ---
MITZI assessment/discharge plan High Risk DC Screen Yes Name: Trixie Noe Relationship: Pre-Admission Living Arrangements: SNF Physician Orders for Life Sustaining Treatment Form Yes Tentative Discharge Plan Summary: Patient is an 79 year old male admitted for SOB/heart failure. Per Christine from [facility] , she is unsure if patient is on a 7 day bed hold and will call me back to let me know if he is or is not once she finds out. She stated patient is one of their short term snf placement patients (not [facility]). Christine does not know if patient has an existing Advance Directive and will call me back and let me know if she does or not. Medical Record Technician and/or [employer] will follow up as needed. Signature: MITZI Pearl Date: Nov 13, 2019
[2019-11-13 16:00] VITALS: BP 98/28
--- NOTE | 2019-11-13 16:00 | NUR ---
BP TAKEN, INFORM DR. BONILLA ABOUT LOW DIASTOLIC. NO NEW ORDERS.
[2019-11-13] MEDS: INSULIN LISPRO SLIDING SCALE 100 UNITS/ML VIAL SUBQ PRN (17:29)
--- NOTE | 2019-11-13 17:29 | NUR ---
BLOOD SUGAR 229, COVERAGE GIVEN. DINNER COMING SOON. PATIENT TOLERATED IT. PATIENT HAS NO COMPLAINTS AT THIS TIME. SAFETY AND ISOLATION PRECAUTIONS IN PLACE, CALL LIGHT WITHIN REACH, WILL CONTINUE TO MONITOR PATIENT.
[2019-11-13] MEDS ORDERED: ALBUTEROL SULFATE/IPRATROPIU 3 ML SOL IH SCH (18:00)
--- NOTE | 2019-11-13 19:25 | NUR ---
REPORT GIVEN AT BEDSIDE FOR CONTINUITY OF CARE. PATIENT IN STABLE CONDITION, CURRENTLY GETTING BREATHING TREATMENT.
--- NOTE | 2019-11-13 19:30 | NUR ---
RECEIVED PT FROMKY RN PT AAOX1 FOLLOW SIMPLES COMMANDS, IV ON PICC LINE ON RT UA INFUSING WELL ON TELEMETRY CONTROLLED AFIB, PT HAS A PRESSURE ULCER ON SACROCOCCYGEL AAREA AND SKIN TEARS AND BRUISES ON BUE, COLINDRES CATH DRAINING WELL YELLOW URINE ON O2 2 LTS VIA NC INITIAL ASSESSMENT DONE
[2019-11-13 19:32] LABS: ANION GAP 9.3 (8-16); CARBON DIOXIDE 32.4 mmol/L (21-32); CHLORIDE 121 mmol/L (98-107); GLUCOSE 169 mg/dL (74-106); UREA NITROGEN, BLOOD 15 mg/dL (7-18)
[2019-11-13 19:39] LABS: POTASSIUM 2.7 mmol/L (3.5-5.1); SODIUM SERUM 160 mmol/L (136-145)
[2019-11-13 20:00] VITALS: BP 103/41
--- NOTE | 2019-11-13 21:30 | NUR ---
BLOOD SUGAR TEST 96, PT REMAIN STABLE NOT DISTRESS NOTED ON TELEMETRY CONTROLLED AFIB
[2019-11-13] MEDS: ATORVASTATIN 20 MG TAB PO SCH (22:14)
[2019-11-14] VITALS: BP 108/52
--- NOTE | 2019-11-14 | NUR ---
PT REPOSITIONED Q2H SLEEPING IV ONRT UA PICC LINE INFUSING WELL ON TELE CONTROLLED AFIB
[2019-11-14] MEDS: POTASSIUM CHLORIDE 40 MEQ in DEXTROSE 5% 1,000 ML IV SCH ×3 (00:45→21:29)
[2019-11-14 04:00] VITALS: BP 108/57
--- NOTE | 2019-11-14 04:00 | NUR ---
SPONGE BATH GIVEN LINEN CHANGED REPOSITIONED Q2H AFIB ON TELEMETRY FOLE CAHT DRAINING WELL YELLOW URINE
[2019-11-14] MEDS: MEROPENEM 1,000 MG in NACL 0.9% 100 ML IV SCH ×3 (05:55→21:19)
--- NOTE | 2019-11-14 06:30 | NUR ---
BLOOD SUGAR TEST 116 PT COOPERATIVE DENIES ANY PAIN ON TELEMETRY CONTROLLED AFIB PT WILL BE ENDORSED TODAY SHIFT NURSE FOR CONTINUE OF CARE
[2019-11-14] MEDS: ACETYLCYSTEINE 10% (100 MG/ML) 100 MG/ML VIAL INH SCH ×3 (06:38→19:18)
[2019-11-14] MEDS: ALBUTEROL SULFATE/IPRATROPIU 3 ML SOL IH SCH ×3 (06:38→19:18)
[2019-11-14] MEDS: BLOOD GLUCOSE MONITORING 1 DEV DEV FS SCH ×4 (07:05→21:32)
--- NOTE | 2019-11-14 07:25 | NUR ---
REPORT RECEIVED FROM ROLL COVERER NURSE FOR CONTINUATION OF CARE. CALL LIGHT ON AND WITHIN REACH, BED IN LOW POSITION, WILL CONTINUE TO MONITOR.
[2019-11-14 08:00] VITALS: BP 99/51
[2019-11-14 08:00] LABS: BASOPHILS # (AUTO) 0.1 K/uL (0.00-0.22); BASOPHILS % (AUTO) 0.6 % (0.0-2.0); EOSINOPHILS # (AUTO) 0.3 K/uL (0-0.4); EOSINOPHILS % (AUTO) 2.6 % (0.0-4.0); HEMATOCRIT 25.8 % (36-52); HEMOGLOBIN 8.1 g/dL (12.0-18.0); LYMPHOCYTES # (AUTO) 1.5 K/uL (2.0-11.5); LYMPHOCYTES % (AUTO) 15.7 % (20.5-51.1); MEAN CORPUSCULAR HEMOGLOBIN 25 pg (27-31); MEAN CORPUSCULAR HGB CONC 31 g/dL (33-37); MEAN CORPUSCULAR VOLUME 80.8 fL (80-94); MONOCYTES # (AUTO) 0.5 K/uL (0.8-1.0); NEUTROPHILS # (AUTO) 7.5 K/uL (1.8-7.7); NEUTROPHILS % (AUTO) 76.1 % (42.2-75.2); PLATELET COUNT (AUTO) 309 K/uL (140-450); RED CELL DISTRIBUTION WIDTH 19.2 % (11.6-13.7); WHITE BLOOD COUNT (AUTO) 9.9 K/uL (4.8-10.8)
[2019-11-14 08:08] LABS: ANION GAP 9.1 (8-16); CARBON DIOXIDE 31.9 mmol/L (21-32); CHLORIDE 120 mmol/L (98-107); CREATININE 0.9 mg/dL (0.7-1.3); GLUCOSE 123 mg/dL (74-106); UREA NITROGEN, BLOOD 14 mg/dL (7-18)
[2019-11-14] MEDS: METOPROLOL 25 MG TAB PO SCH ×2 (09:00→21:00)
[2019-11-14 09:20] LABS: SODIUM SERUM 158 mmol/L (136-145)
--- NOTE | 2019-11-14 10:00 | NUR ---
PATIENT WAS TURNED, TOLERATED WELL, CHARTED ON MULTIPLE SKIN TEARS, DENIES PAIN AT THIS TIME. IV FLUID INFUSING. BED IN LOW POSITION, CALL LIGHT ON AND WITHIN REACH. WILL CONTINUE TO MONITOR.
[2019-11-14] MEDS: TAMSULOSIN 0.4 MG CAP PO SCH (10:28)
[2019-11-14] MEDS: MULTIVITAMIN/MINERALS 1 TAB PO SCH (10:28)
[2019-11-14] MEDS: ASPIRIN 81 MG TAB.CHEW PO SCH (10:29)
[2019-11-14] MEDS: FINASTERIDE 5 MG TAB PO SCH (10:29)
[2019-11-14] MEDS: ASCORBIC ACID 500 MG TAB PO SCH (10:29)
[2019-11-14] MEDS: APIXABAN 2.5 MG TAB PO SCH ×2 (10:31→21:18)
[2019-11-14] MEDS: HYDRAGUARD CREAM TP SCH (10:41)
[2019-11-14 10:56] LABS: PHOSPHORUS 2.7 mg/dL (2.5-4.9)
--- NOTE | 2019-11-14 11:59 | NUR ---
*Speech Pathology treatment note* S: Pt seen at bedside, without family member/caregiver present. Cleared by DREW Myrick to see pt. RN also reported good tolerance of current diet textures. O: P.O. trials thin liquid via controlled cup sip (1 bolus) and and nectar thick liquids via spoon sips (4 oz). A: Immediate coughing after swallow of thin liquids via cup sip. No overt s/s aspiration w/ spoon sips of nectar thick liquids. P: Recommend continue current diet textures of mechanical soft ground w/ nectar thick liquids. DC to [facility] at this time. Time [id number]
[2019-11-14 12:00] VITALS: BP 110/33
--- NOTE | 2019-11-14 12:30 | NUR ---
PATIENT IS RESTING IN BED, SPOKE WITH HER , PATIENT TOLERATED BREAKFAST WELL, MECHANICAL SOFT DIET. WILL CONTINUE TO MONITOR.
--- NOTE | 2019-11-14 14:57 | NUR ---
11/14/19 RD FOLLOW UP COMPLETED PLEASE REFER TO NUTRITION ASSESSMENT UNDER CARE ACTIVITY FOR ESTIMATED NUTRITIONAL NEEDS. 1. CONTINUE MECHANICAL SOFT DIET WITH NECTAR THICK LIQUIDS TOLERATED 2. RECOMMEND ENSURE BID 3. RECOMMEND JAY JAY BID 4. RD TO FOLLOW-UP 2-3 DAYS, HIGH RISK [place], RD
--- NOTE | 2019-11-14 15:00 | NUR ---
PATIENT IS RESTING IN BED, CALL LIT ON AND WITHIN REACH, DENIES PAIN AT THIS TIME. WILL CONTINUE TO MONITOR.
[2019-11-14 16:00] VITALS: BP 101/64
[2019-11-14] MEDS: INSULIN LISPRO SLIDING SCALE 100 UNITS/ML VIAL SUBQ PRN (17:03)
--- NOTE | 2019-11-14 17:30 | NUR ---
PATIENT WAS TURNED, HYDRAGUARD APPLIED TO COCCYX, SACRAL AREA. IV FLUID RUNNING AT 125 ML/HR PER MD'S ORDERS. CALL LIGHT ON AND WITHIN REACH. WILL CONTINUE TO MONITOR.
[2019-11-14] MEDS ORDERED: POTASSIUM CHLORIDE 20% 40 MEQ/15 ML UDC PO SCH (18:39)
[2019-11-14] MEDS ORDERED: ACETYLCYSTEINE 10% (100 MG/ML) 100 MG/ML VIAL ONE (19:15)
--- NOTE | 2019-11-14 19:25 | NUR ---
REPORT GIVEN TO PLANTING MATERIAL UNLOADER NURSE FOR CONTINUITY OF CARE.
--- NOTE | 2019-11-14 19:26 | NUR ---
REPORT RECEIVED FROM AM NURSE AT BEDSIDE. PT IN STABLE CONDITION. AAOX1-2. INTRODUCED SELF TO PT. BOARD UPDATED. NO COMPLAINTS OF PAIN. NO SOB ON 2L O2 VIA NC. AFEBRILE. IV SITE R UA PICC DOUBLE LUMEN PATENT AND INTACT. SKIN WARM, DRY, AND NOT INTACT DUE TO SACRAL WOUND. BED LOCKED IN LOW POSITION. CALL CARLIN WITHIN REACH. SAFETY PRECAUTION IN PLACE. ALL NEEDS MET AT THIS TIME.
[2019-11-14 19:56] LABS: MAGNESIUM 2.2 mg/dL (1.8-2.4)
[2019-11-14 20:00] VITALS: BP 97/56
[2019-11-14 20:55] LABS: ANION GAP 3.9 (8-16); CARBON DIOXIDE 34.1 mmol/L (21-32); CHLORIDE 120 mmol/L (98-107); CREATININE 0.9 mg/dL (0.7-1.3); GLUCOSE 106 mg/dL (74-106); SODIUM SERUM 155 mmol/L (136-145); UREA NITROGEN, BLOOD 15 mg/dL (7-18)
[2019-11-14] MEDS: ATORVASTATIN 20 MG TAB PO SCH (21:18)
--- NOTE | 2019-11-14 21:19 | NUR ---
ELIQUIS AND LIPITOR GIVEN PO. MERREM HUNG AND RUNNING. BS 92. NO INSULIN COVERAGE NEEDED. LOPRESSOR HELD DUE TO DECREASED BP. D5W WITH K+40MEQ HUNG AND RUNNING. PT TOLERATING WELL.
--- NOTE | 2019-11-14 23:15 | NUR ---
PT SLEEPING COMFORTABLY BUT AROUSABLE. NO S/S OF DISTRESS NOTED. VS STABLE. WILL CONTINUE TO MONITOR.
[2019-11-15] VITALS: BP 102/56
--- NOTE | 2019-11-15 01:15 | NUR ---
ASSESSED PATIENT DRESSING WAS CLEAN, DRY, AND INTACT. DRESSING NOT CHANGED.
--- NOTE | 2019-11-15 03:00 | NUR ---
PT SLEEPING COMFORTABLY BUT AROUSABLE. NO S/S OF DISTRESS NOTED. NO COMPLAINTS OF PAIN. NO SOB. AFEBRILE. WILL CONTINUE TO MONITOR.
[2019-11-15 04:00] VITALS: BP 106/59
[2019-11-15] MEDS: MEROPENEM 1,000 MG in NACL 0.9% 100 ML IV SCH ×3 (04:35→21:08)
--- NOTE | 2019-11-15 04:35 | NUR ---
SHOAIB KOVACS AND RUNNING. PT TOLERATING WELL. Addendum: 11/15/19 at 0535 by Jaylen Quezada RN DRESSING WAS NOT CLEAN AND WAS CHANGED.
[2019-11-15] MEDS: BLOOD GLUCOSE MONITORING 1 DEV DEV FS SCH ×4 (06:35→21:22)
--- NOTE | 2019-11-15 06:35 | NUR ---
BS 145. NO INSULIN COVERAGE NEEDED.
--- NOTE | 2019-11-15 06:55 | NUR ---
PT SLEEPING COMFORTABLY BUT AROUSABLE. PT IN STABLE CONDITION.
--- NOTE | 2019-11-15 07:38 | NUR ---
REPORT RECEIVED FROM IMPROVEMENT SPECIALIST NURSE AT BEDSIDE. PT IN STABLE CONDITION. AAOX2. INTRODUCED SELF TO PT. BOARD UPDATED. NO COMPLAINTS OF PAIN. NO SOB ON 2L O2 VIA NC. AFEBRILE. IV SITE R UA PICC DOUBLE LUMEN PATENT AND INTACT. SKIN WARM, DRY, AND NOT INTACT DUE TO SACRAL WOUND. PT ALSO HAS +4 PITTING EDEMA IN THE BU/LE. DISCUSSED POC WITH PT NAD PT VERBALIZED UNDERSTANDING. BED LOCKED IN LOW POSITION. CALL CARLIN WITHIN REACH. SAFETY PRECAUTION IN PLACE. ALL NEEDS MET AT THIS TIME.
[2019-11-15] MEDS: ALBUTEROL SULFATE/IPRATROPIU 3 ML SOL IH SCH ×3 (07:52→20:10)
[2019-11-15] MEDS: ACETYLCYSTEINE 10% (100 MG/ML) 100 MG/ML VIAL INH SCH ×2 (07:52→20:11)
[2019-11-15 08:00] VITALS: BP 107/53
[2019-11-15] MEDS: METOPROLOL 25 MG TAB PO SCH ×2 (09:00→21:00)
--- NOTE | 2019-11-15 09:48 | NUR ---
ADMINISTERED MORNING MEDS TO PT. PT TOLERATED WELL. ALL NEEDS MET. WILL CONTINUE TO ROUND FREQUENTLY ON PT. BED IN LOW POSITION, CALL LIGHT WITHIN REACH.
[2019-11-15] MEDS: ASPIRIN 81 MG TAB.CHEW PO SCH (10:00)
[2019-11-15] MEDS: FINASTERIDE 5 MG TAB PO SCH (10:01)
[2019-11-15] MEDS: ASCORBIC ACID 500 MG TAB PO SCH (10:01)
[2019-11-15] MEDS: TAMSULOSIN 0.4 MG CAP PO SCH (10:01)
[2019-11-15] MEDS: MULTIVITAMIN/MINERALS 1 TAB PO SCH (10:02)
[2019-11-15] MEDS: APIXABAN 2.5 MG TAB PO SCH ×2 (10:04→21:08)
[2019-11-15] MEDS: HYDRAGUARD CREAM TP SCH (10:05)
[2019-11-15 10:53] LABS: ANION GAP 4.9 (8-16); CARBON DIOXIDE 32.8 mmol/L (21-32); CHLORIDE 117 mmol/L (98-107); POTASSIUM 3.7 mmol/L (3.5-5.1); SODIUM SERUM 151 mmol/L (136-145)
[2019-11-15 10:54] LABS: CREATININE 0.8 mg/dL (0.7-1.3); GLUCOSE 160 mg/dL (74-106); UREA NITROGEN, BLOOD 13 mg/dL (7-18)
[2019-11-15] MEDS: POTASSIUM CHLORIDE 40 MEQ in DEXTROSE 5% 1,000 ML IV SCH (11:13)
[2019-11-15 12:00] VITALS: BP 107/62
[2019-11-15] MEDS: INSULIN LISPRO SLIDING SCALE 100 UNITS/ML VIAL SUBQ PRN ×2 (12:04→17:07)
--- NOTE | 2019-11-15 12:09 | NUR ---
PT REFUSING INSULIN 4UNITS AT THIS TIME. EXPLAINED RISKS OF NOT HAVING MED. PT VERBALIZED UNDERSTANDING BUT REFUSED ANYWAY. WILL CONTINUE TO ROUND FREQUENTLY ON PT.
[2019-11-15] MEDS: POTASSIUM CHLORIDE 20 MEQ in DEXTROSE 5% 1,000 ML IV SCH (12:34)
--- NOTE | 2019-11-15 13:39 | NUR ---
PT ASLEEP. ALL NEEDS MET. NO SIGNS OF DISTRESS NOTED. WILL CONTINUE TO ROUND FREQUENTLY ON PT. BED IN LOW POSITION, CALL LIGHT WITHIN REACH.
--- NOTE | 2019-11-15 13:48 | NUR ---
MUCOMYST NOT GIVEN FREQUENCY CHANGE BY MD
--- NOTE | 2019-11-15 15:22 | NUR ---
PT RESTING IN BED. ALL NEEDS MET. WILL CONTINUE TO ROUND FREQUENTLY ON PT
[2019-11-15] MEDS ORDERED: MERO1PIG IV (15:24)
[2019-11-15 16:00] VITALS: BP 104/67
--- NOTE | 2019-11-15 17:44 | NUR ---
PT ASLEEPI. ALL NEEDS MET. WILL CONTINUE TO ROUND FREQUENTLY ON PT.
--- NOTE | 2019-11-15 18:31 | NUR ---
CALLED TO GIVE REPORT TO FREDIS SINGH FOR CONTINUITY OF PT CARE. REPORT GIVEN TO KIM, RECEIVING RN.
--- NOTE | 2019-11-15 18:42 | NUR ---
RECEIVED CALL FROM WORK STATION SUPPORT SPECIALIST FREDIS AVILA UNABLE TO TAKE PT TODAY BECAUSE HE IS ON CONTACT ISOLATION AND THEY DO NOT HAVE ISOLATION ROOM AVAILABLE. HERBERT PRICING CLERK MADE AWARE WELL RESIDENTS.
--- NOTE | 2019-11-15 19:06 | NUR ---
PT RETURNED FROM CT. PT IN STABLE CONDITION.
[2019-11-15] MEDS ORDERED: ACETYLCYSTEINE 10% (100 MG/ML) 100 MG/ML VIAL ONE (19:24)
--- NOTE | 2019-11-15 19:32 | NUR ---
ENDORSED PT TO MAINTENANCE SERVICE SUPERVISOR FOR CONTINUITY OF CARE. PT IN STABLE CONDITION AT THIS TIME.
--- NOTE | 2019-11-15 19:33 | NUR ---
REPORT RECEIVED FROM AM NURSE AT BEDSIDE. PT IN STABLE CONDITION. AAOX1-2. INTRODUCED SELF TO PT. BOARD UPDATED. NO COMPLAINTS OF PAIN. NO SOB. AFEBRILE. PT IS BEDBOUND. PT HAS COLINDRES. PT ON 2L O2 VIA NC. IV SITE R UA DOUBLE LUMEN PICC RUNNING D5 KCL 20MEQ@80ML/HR PATENT AND INTACT. SKIN WARM, DRY, AND NOT INTACT DUE TO MULTIPLE WOUNDS. SEE WOUND NOTES. BED LOCKED IN LOW POSITION. CALL CARLIN WITHIN REACH. SAFETY PRECAUTION IN PLACE. ALL NEEDS MET AT THIS TIME.
[2019-11-15 20:00] VITALS: BP 109/60
[2019-11-15] MEDS: ATORVASTATIN 20 MG TAB PO SCH (21:08)
--- NOTE | 2019-11-15 21:08 | NUR ---
LIPITOR AND ELIQUIS GIVEN PO. LOPRESSOR HELD DUE TO DECREASED BP. MERREM HUNG AND RUNNING. BS 67. NO INSULIN COVERAGE NEEDED. PT GIVEN 2 ORANGE JUICES WITH THICKEN LIQUIDS. PT TOLERATED WELL.
--- NOTE | 2019-11-15 22:00 | NUR ---
PT AWAKE AND ALERT WATCHING TV. NO S/S OF DISTRESS NOTED. WILL CONTINUE TO MONITOR.
--- NOTE | 2019-11-15 23:45 | NUR ---
PT AWAKE AND ALERT LAYING IN BED WATCHING TV. NO S/S OF DISTRESS NOTED. NO COMPLAINTS OF PAIN. NO SOB. AFEBRILE. WILL CONTINUE TO MONITOR.
[2019-11-16] VITALS: BP 103/67
--- NOTE | 2019-11-16 01:00 | NUR ---
PT SLEEPING COMFORTABLY BUT AROUSABLE. NO S/S OF DISTRESS NOTED. NO COMPLAINTS OF PAIN. NO SOB. AFEBRILE. WILL CONTINUE TO MONITOR.
[2019-11-16] MEDS: POTASSIUM CHLORIDE 20 MEQ in DEXTROSE 5% 1,000 ML IV SCH ×2 (02:01→13:16)
--- NOTE | 2019-11-16 02:01 | NUR ---
D5W KCL 20MEQ HUNG AND RUNNING.
[2019-11-16 04:00] VITALS: BP 104/58
[2019-11-16] MEDS: MEROPENEM 1,000 MG in NACL 0.9% 100 ML IV SCH ×2 (04:08→13:59)
--- NOTE | 2019-11-16 04:08 | NUR ---
SHOAIB HUNG AND RUNNING. PT TOLERATING WELL.
[2019-11-16] MEDS: BLOOD GLUCOSE MONITORING 1 DEV DEV FS SCH ×3 (05:30→16:30)
--- NOTE | 2019-11-16 05:30 | NUR ---
BS 130. NO INSULIN COVERAGE NEEDED.
[2019-11-16 06:15] LABS: BASOPHILS % (AUTO) 0.6 % (0.0-2.0); EOSINOPHILS # (AUTO) 0.5 K/uL (0-0.4); EOSINOPHILS % (AUTO) 6.8 % (0.0-4.0); HEMOGLOBIN 7.5 g/dL (12.0-18.0); LYMPHOCYTES # (AUTO) 1.3 K/uL (2.0-11.5); LYMPHOCYTES % (AUTO) 17.2 % (20.5-51.1); MEAN CORPUSCULAR HEMOGLOBIN 25 pg (27-31); MEAN CORPUSCULAR HGB CONC 31 g/dL (33-37); MEAN CORPUSCULAR VOLUME 79.9 fL (80-94); MONOCYTES # (AUTO) 0.6 K/uL (0.8-1.0); MONOCYTES % (AUTO) 7.1 % (1.7-9.3); NEUTROPHILS # (AUTO) 5.3 K/uL (1.8-7.7); NEUTROPHILS % (AUTO) 68.3 % (42.2-75.2); PLATELET COUNT (AUTO) 289 K/uL (140-450); RED BLOOD CELL COUNT(AUTO) 3.01 MIL/uL (4.20-6.10); RED CELL DISTRIBUTION WIDTH 19.3 % (11.6-13.7); WHITE BLOOD COUNT (AUTO) 7.8 K/uL (4.8-10.8)
--- NOTE | 2019-11-16 06:40 | NUR ---
PT SLEEPING COMFORTABLY BUT AROUSABLE. PT IN STABLE CONDITION.
[2019-11-16] MEDS: ACETYLCYSTEINE 10% (100 MG/ML) 100 MG/ML VIAL INH SCH ×3 (07:00→19:42)
[2019-11-16 07:06] LABS: ANION GAP 7.7 (8-16); CHLORIDE 113 mmol/L (98-107); CREATININE 0.8 mg/dL (0.7-1.3); GLUCOSE 144 mg/dL (74-106); POTASSIUM 3.7 mmol/L (3.5-5.1); SODIUM SERUM 148 mmol/L (136-145); UREA NITROGEN, BLOOD 14 mg/dL (7-18)
--- NOTE | 2019-11-16 07:10 | NUR ---
RECEIVED REPORT FROM STOCK REPAIRER NURSE ARIC FOR CONTINUITY OF CARE. PT IN STABLE CONDITION. RESPIRATIONS EVEN AND UNLABORED. IV INTACT AND PATENT. SAFETY MEASURES IN PLACE. BED IN LOW POSITION. CALL LIGHT AT BEDSIDE. BED ALARM ON. WILL CONTINUE TO MONITOR.
[2019-11-16 07:15] LABS: PHOSPHORUS 2.3 mg/dL (2.5-4.9)
[2019-11-16] MEDS: ALBUTEROL SULFATE/IPRATROPIU 3 ML SOL IH SCH ×3 (07:55→19:42)
--- NOTE | 2019-11-16 07:56 | NUR ---
UNABLE TO PULL MUCOMYST FROM [employer], WILL FOLLOW UP WITH PHARMACY.
[2019-11-16 08:00] VITALS: BP 96/57
[2019-11-16] MEDS: METOPROLOL 25 MG TAB PO SCH (09:00)
--- NOTE | 2019-11-16 09:55 | NUR ---
GAVE ORDERED DUE MEDICATIONS AT THIS TIME. PT TOLERATED WELL. BED IN LOW POSITION. BED ALARM ON. CALL LIGHT AT BEDSIDE. WILL CONTINUE TO MONITOR.
[2019-11-16] MEDS: TAMSULOSIN 0.4 MG CAP PO SCH (09:59)
[2019-11-16] MEDS: ASCORBIC ACID 500 MG TAB PO SCH (09:59)
[2019-11-16] MEDS: ASPIRIN 81 MG TAB.CHEW PO SCH (09:59)
[2019-11-16] MEDS: FINASTERIDE 5 MG TAB PO SCH (09:59)
[2019-11-16] MEDS: MULTIVITAMIN/MINERALS 1 TAB PO SCH (10:00)
[2019-11-16] MEDS: APIXABAN 2.5 MG TAB PO SCH (10:01)
[2019-11-16] MEDS: HYDRAGUARD CREAM TP SCH (10:20)
--- NOTE | 2019-11-16 11:33 | NUR ---
PT SLEEPING AT THIS TIME. RESPIRATIONS EVEN AND UNLABORED. BED IN LOW POSITION. BED ALARM ON. CALL LIGHT AT BEDSIDE. WILL CONTINUE TO MONITOR.
[2019-11-16 12:00] VITALS: BP 101/64
--- NOTE | 2019-11-16 13:00 | NUR ---
ASSISTED WITH FEEDING AT THIS TIME. PT TOLERATED WELL. BED IN LOW POSITION. BED ALARM ON. CALL LIGHT AT BEDSIDE. WILL CONTINUE TO MONITOR.
[2019-11-16] MEDS: INSULIN LISPRO SLIDING SCALE 100 UNITS/ML VIAL SUBQ PRN (13:40)
--- NOTE | 2019-11-16 15:45 | NUR ---
PT SLEEPING AT THIS TIME. RESPIRATIONS EVEN AND UNLABORED. BED IN LOW POSITION. BED ALARM ON. CALL LIGHT AT BEDSIDE. WILL CONTINUE TO MONITOR.
[2019-11-16 16:00] VITALS: BP 109/59
--- NOTE | 2019-11-16 16:10 | NUR ---
GAVE REPORT TO FREDIS SINGH STAFF NURSE SHARMIN. ALL QUESTIONS ANSWERED AT THIS TIME.
--- NOTE | 2019-11-16 17:10 | NUR ---
PT WATCHING TV AT THIS TIME. RESPIRATIONS EVEN AND UNLABORED. BED IN LOW POSITION. BED ALARM ON. CALL LIGHT AT BEDSIDE. WILL CONTINUE TO MONITOR.
--- NOTE | 2019-11-16 18:30 | NUR ---
CALLED [facility], SPOKE WITH MOHAN, STATED THEY ARE ON THEIR WAY TO LABOR RELATIONS OFFICER PT.
[2019-11-16] MEDS ORDERED: ACETYLCYSTEINE 10% (100 MG/ML) 100 MG/ML VIAL ONE (19:06)
--- NOTE | 2019-11-16 19:30 | NUR ---
GAVE REPORT TO DRAFTER NURSE FOR CONTINUITY OF CARE. PT IN STABLE CONDITION.
--- NOTE | 2019-11-16 19:35 | NUR ---
RECEIVED REPORT FROM DAYSHIFT NURSE AT PATIENTS BEDSIDE. PATIENT AWAKE AND ALERT, BUT CONFUSED. MUMBLES SENTENCES ABLE TO SAY SOME SIMPLE WORDS/PHRASES. ON ROOM AIR. LUNG SOUNDS ARE COARSE. BREATHING IS UNLABORED. HEART RATE IS ELEVATED, 102BPM, AFIB RHYTHM. BUE MULTIPLE SKIN TEARS NOTED, WRAPPED/DRESSED WITH DRESSING AND KERLIX WRAP. DRY AND INTACT. EDEMA NOTED. BLE 4+ EDEMA NOTED. RIGHT UPPER ARM PICC LINE IN PLACE. BOTH LUMENS PATENT WITHOUT SYMPTOMS, SALINE LOCKED. COLINDRES CATHETER IN PLACE, DARK CARINE URINE NOTED. SIDERAILS UPx3, BED LOCKED AND IN LOWEST POSITION, UPDATED ON CARE PLAN AND REORIENTED. WAITING FOR [facility]. NO COMPLAINTS AT THIS TIME, ALL NEEDS MET.
[2019-11-16 20:00] VITALS: BP 97/48
--- NOTE | 2019-11-16 20:41 | NUR ---
[facility] PATIENTS FLUIDS DISCONNECTED AND FLUSHED, SALINE LOCKED. COLINDRES IN PLACE. ON ROOM AIR, SAFELY TRANSFERRED TO [facility] WITHOUT INCIDENT. NO BELONGINGS WITH PATIENT.
== END 2019-11-16 20:50 | DRG 871 ==
LOC: MED 08:36 → MTU 11:48
PROVIDERS: ADMIT General Practice; ATTEND General Practice
PROC: 02HV33Z Insertion of Infusion Device into Superior Vena Cava, Percutaneous Approach (ICD-10-PCS; principal; 2019-11-11)
PROC: B548ZZA Ultrasonography of Superior Vena Cava, Guidance (ICD-10-PCS; 2019-11-11)
DX: A41.9 Sepsis, unspecified organism (principal); E43 Unspecified severe protein-calorie malnutrition; J96.01 Acute respiratory failure with hypoxia; J69.0 Pneumonitis due to inhalation of food and vomit; I50.43 Acute on chronic combined systolic (congestive) and diastolic (congestive) heart failure; I21.A1 Myocardial infarction type 2; N39.0 Urinary tract infection, site not specified; E87.0 Hyperosmolality and hypernatremia; Z16.12 Extended spectrum beta lactamase (ESBL) resistance; R65.20 Severe sepsis without septic shock; B96.20 Unspecified Escherichia coli [E. coli] as the cause of diseases classified elsewhere; E78.5 Hyperlipidemia, unspecified; E86.0 Dehydration; E87.6 Hypokalemia; E87.8 Other disorders of electrolyte and fluid balance, not elsewhere classified; F03.90 Unspecified dementia, unspecified severity, without behavioral disturbance, psychotic disturbance, mood disturbance, and anxiety; F32.9 Major depressive disorder, single episode, unspecified; G83.9 Paralytic syndrome, unspecified; I11.0 Hypertensive heart disease with heart failure; I48.91 Unspecified atrial fibrillation; K59.09 Other constipation; N40.0 Benign prostatic hyperplasia without lower urinary tract symptoms; R13.10 Dysphagia, unspecified; E83.42 Hypomagnesemia; Z74.01 Bed confinement status; Z86.73 Personal history of transient ischemic attack (TIA), and cerebral infarction without residual deficits; Z79.899 Other long term (current) drug therapy; Z79.01 Long term (current) use of anticoagulants; Z68.24 Body mass index [BMI] 24.0-24.9, adult
CPT/HCPCS: 36415; 36600; 71045; 80048; 80053; 81001; 82803; 82948; 83036; 83605; 83735; 83880; 84100; 84436; 84443; 84484; 85025; 85610; 85730; 87040; 87081; 87086; 87186; 87804; 92526; 92610; 93005; 94640; 94667; 96361; 96374; 99285; C1751; J0295; J0696; J1650; J1815; J1940; J2001; J2185; J3475; J3480; J7030; J7060; J7620; Q0092